=== PATIENT | female | born 1960 | race Caucasian/White ===

== ENCOUNTER 2016-09-12 08:42 | Emergency (ER) | payer SELFPAY ==
[2016-09-12 08:52] VITALS: TEMP 97.9
[2016-09-12] MEDS ORDERED: SODIUM CHLORIDE 0.9% 1,000 ML IV STA (09:26)
[2016-09-12] MEDS ORDERED: HYDROmorphone 1 MG/ML 1 ML SYRINGE IVP STA (09:26)
[2016-09-12] MEDS ORDERED: ONDANSETRON 4 MG/2 ML VIAL IVP STA (09:26)
[2016-09-12 09:51] LABS: Basophils % (A) 0 %; CH 31.9; CHCM 33.5; Eosinophils # (A) 0.1 k/uL (0-0.7); Eosinophils % (A) 1 %; HCT 47.2 % (34.0-46.0); HDW 2.23; HGB 15.6 gm/dL (11.4-16.0); Luc # (Auto) 0.08; Luc % (Auto) 2; Lymphocytes # (A) 1.3 k/uL (1.0-4.8); Lymphocytes % (A) 34 %; MCH 31.6 pg (25.0-35.0); MCHC 33.1 g/dL (31.0-37.0); MCV 95.5 fL (80.0-100.0); Mean Platelet Volume 6.7; Monocytes # (A) 0.1 k/uL (0-1.0); Monocytes % (A) 4 %; Neutrophils # (A) 2.3 k/uL (1.3-7.7); Neutrophils % (A) 59 %; RBC 4.95 m/uL (3.80-5.40); RDW 12.9 % (11.5-15.5); WBC 3.9 k/uL (3.8-10.6); WBC (Perox) 3.76
--- NOTE | 2016-09-12 09:58 | ED ---
Abdominal Pain HPI <StewartZander - Last Filed: 09/12/16 14:50> - General Source: patient, RN notes reviewed Mode of arrival: ambulatory Limitations: no limitations <Becky Hernández - Last Filed: 09/12/16 18:48> - General Chief Complaint: Abdominal Pain Stated Complaint: abd pain Time Seen by Provider: 09/12/16 09:27 - History of Present Illness Initial Comments: Patient is a 55-year-old female presents to the emergency room for evaluation of lower abdominal pain. Patient states she has been having on and off pelvic pain for the past week. Patient states that it did subside. Patient states that this morning on her way to work she began having lower pelvic pain worse in the right lower quadrant. Patient states it was a constant sharp stabbing pain. Patient states the pain is making her nauseous. Patient states she thought she should be evaluated here. Patient denies pain or burning during urination, trouble urinating or blood in urine. Patient does admit to having some yellow vaginal discharge over the past few weeks. Patient denies vaginal bleeding. Patient does state she had a uterine ablation done about 4 years ago and has not had any issues since. Patient denies fevers or chills. Patient states that the pain did subside after taking 400 mg of ibuprofen. Patient denies other histories of abdominal surgeries. Patient states she takes Metoprolol for High Blood Pressure. Patient Denies Any Other Significant past Medical History. Patient Denies Constipation or Diarrhea. Patient Denies Blood in Stools. (Becky Hernández) - Related Data Home Medications Medication Instructions Recorded Confirmed Ascorbic Acid [Vitamin C] 500 mg PO DAILY 09/12/16 09/12/16 Glucosamine/Chondr Cooley A Sod [Osteo 1 tab PO DAILY 09/12/16 09/12/16 Bi-Flex Caplet] Metoprolol Tartrate [Lopressor] 50 mg PO BID 09/12/16 09/12/16 Multivitamins, Thera [Multivitamin 1 tab PO DAILY 09/12/16 09/12/16 (formulary)] [place]-3 Fatty Acids/Fish Oil [Fish 1 cap PO DAILY 09/12/16 09/12/16 Oil 1,000 mg Capsule] Ubidecarenone [Co Q-10] 100 mg PO DAILY 09/12/16 09/12/16 Previous Rx's Medication Instructions Recorded Nitrofurantoin Monohyd/M-Cryst 100 mg PO Q12HR 5 Days 09/12/16 [Macrobid] Allergies Allergy/AdvReac Type Severity Reaction Status Date / Time No Known Allergies Allergy Verified 09/12/16 09:31 Review of Systems ROS Other: All systems not noted in ROS Statement are negative. <Zander William - Last Filed: 09/12/16 14:50> ROS Other: All systems not noted in ROS Statement are negative. <Becky Hernández - Last Filed: 09/12/16 18:48> ROS Statement: Those systems with pertinent positive or pertinent negative responses have been documented in the HPI. Past Medical History Past Medical History: Hypertension History of Any Multi-Drug Resistant Organisms: None Reported Past Surgical History: Uterine Ablation Past Psychological History: No Psychological Hx Reported Smoking Status: Never smoker Past Alcohol Use History: None Reported Past Drug Use History: None Reported <Becky Hernández - Last Filed: 09/12/16 18:48> General Exam <Zander William - Last Filed: 09/12/16 14:50> Limitations: no limitations, language barrier General appearance: in no apparent distress Head exam: Present: atraumatic, normocephalic, normal inspection Eye exam: Present: normal appearance ENT exam: Present: normal exam Neck exam: Present: normal inspection Respiratory exam: Present: normal lung sounds bilaterally. Absent: respiratory distress Cardiovascular Exam: Present: regular rate, normal rhythm, normal heart sounds GI/Abdominal exam: Present: soft, tenderness (mild RLQ and LLQ pain), normal bowel sounds. Absent: distended, guarding, rebound, rigid External exam: Present: normal external exam Speculum exam: Present: normal speculum exam By manual exam: Present: normal by manual exam. Absent: cervical motion tenderness Extremities exam: Present: normal inspection Back exam: Present: normal inspection Neurological exam: Present: alert, oriented X3, CN II-XII intact, normal gait Psychiatric exam: Present: normal affect, normal mood Skin exam: Present: warm, dry, intact, normal color. Absent: rash <Becky Hernández - Last Filed: 09/12/16 18:48> - General Exam Comments Initial Comments: Sitting in exam room, no acute distress. (Becky Hernández) Medical Decision Making - Lab Data Result diagrams: 09/12/16 09:20 09/12/16 09:20 <Zander William - Last Filed: 09/12/16 14:50> - Lab Data Result diagrams: 09/12/16 09:20 09/12/16 09:20 - Radiology Data Radiology results: report reviewed, image reviewed <Becky Hernández - Last Filed: 09/12/16 18:48> - Medical Decision Making Medical decision making. Examine the patient she has mild tenderness more of the suprapubic region. Urinalysis does show evidence of urinary tract infection with 44 whites positive leukocytes. Patient's test was negative. Review of ultrasound and CAT scan suggests possible left ovarian mass. The case was discussed at length with Dr. Finley, the patient's OB/ [employer] [facility] she will follow up in office tomorrow inasmuch as the patient's vital signs are stable now he has minimal discomfort at this time hemoglobin 15 hematocrit of 47 with a white count of 23.9. Patient was told return emergency room if she has any difficulties to be now the time she sees her OB tomorrow. Dr. William (Zander William) - Lab Data Lab Results 09/12/16 09/12/16 09/12/16 Range/Units 09:20 09:20 11:23 WBC 3.9 (3.8-10.6) k/uL RBC 4.95 (3.80-5.40) m/uL Hgb 15.6 (11.4-16.0) gm/dL Hct 47.2 H (34.0-46.0) % MCV 95.5 (80.0-100.0) fL MCH 31.6 (25.0-35.0) pg MCHC 33.1 (31.0-37.0) g/dL RDW 12.9 (11.5-15.5) % Plt Count 171 (150-450) k/uL Neutrophils % 59 % Lymphocytes % 34 % Monocytes % 4 % Eosinophils % 1 % Basophils % 0 % Neutrophils # 2.3 (1.3-7.7) k/uL Lymphocytes # 1.3 (1.0-4.8) k/uL Monocytes # 0.1 (0-1.0) k/uL Eosinophils # 0.1 (0-0.7) k/uL Basophils # 0.0 (0-0.2) k/uL Sodium 145 (137-145) mmol/L Potassium 3.8 (3.5-5.1) mmol/L Chloride 107 (98-107) mmol/L Carbon Dioxide 25 (22-30) mmol/L Anion Gap 13 mmol/L BUN 16 (7-17) mg/dL Creatinine 0.73 (0.52-1.04) mg/dL Est GFR (MDRD) Af Amer >60 (>60 ml/min/1.73 sqM) Est GFR (MDRD) Non-Af >60 (>60 ml/min/1.73 sqM) Glucose 103 H (74-99) mg/dL Calcium 9.1 (8.4-10.2) mg/dL Total Bilirubin 0.8 (0.2-1.3) mg/dL AST 24 (14-36) U/L ALT 21 (9-52) U/L Alkaline Phosphatase 91 (38-126) U/L Total Protein 8.0 (6.3-8.2) g/dL Albumin 4.6 (3.5-5.0) g/dL Amylase 119 H (30-110) U/L Lipase 112 (23-300) U/L Urine Color Yellow Urine Appearance Cloudy H (Clear) Urine pH 5.5 (5.0-8.0) Ur Specific [place] 1.015 (1.001-1.035) Urine Protein Negative (Negative) Urine Glucose (UA) Negative (Negative) Urine Ketones Negative (Negative) Urine Blood Trace H (Negative) Urine Nitrite Negative (Negative) Urine Bilirubin Negative (Negative) Urine Urobilinogen <2.0 (<2.0) mg/dL Ur Leukocyte Esterase Large H (Negative) Urine RBC 2 (0-5) /hpf Urine WBC 44 H (0-5) /hpf Urine WBC Clumps Rare H (None) /hpf Urine Mucus Rare H (None) /hpf Urine HCG, Qual (Not Detectd) Trichomonas Ag (Rapid) (Negative) 09/12/16 09/12/16 Range/Units 11:23 14:21 WBC (3.8-10.6) k/uL RBC (3.80-5.40) m/uL Hgb (11.4-16.0) gm/dL Hct (34.0-46.0) % MCV (80.0-100.0) fL MCH (25.0-35.0) pg MCHC (31.0-37.0) g/dL RDW (11.5-15.5) % Plt Count (150-450) k/uL Neutrophils % % Lymphocytes % % Monocytes % % Eosinophils % % Basophils % % Neutrophils # (1.3-7.7) k/uL Lymphocytes # (1.0-4.8) k/uL Monocytes # (0-1.0) k/uL Eosinophils # (0-0.7) k/uL Basophils # (0-0.2) k/uL Sodium (137-145) mmol/L Potassium (3.5-5.1) mmol/L Chloride (98-107) mmol/L Carbon Dioxide (22-30) mmol/L Anion Gap mmol/L BUN (7-17) mg/dL Creatinine (0.52-1.04) mg/dL Est GFR (MDRD) Af Amer (>60 ml/min/1.73 sqM) Est GFR (MDRD) Non-Af (>60 ml/min/1.73 sqM) Glucose (74-99) mg/dL Calcium (8.4-10.2) mg/dL Total Bilirubin (0.2-1.3) mg/dL AST (14-36) U/L ALT (9-52) U/L Alkaline Phosphatase (38-126) U/L Total Protein (6.3-8.2) g/dL Albumin (3.5-5.0) g/dL Amylase (30-110) U/L Lipase (23-300) U/L Urine Color Urine Appearance (Clear) Urine pH (5.0-8.0) Ur Specific [place] (1.001-1.035) Urine Protein (Negative) Urine Glucose (UA) (Negative) Urine Ketones (Negative) Urine Blood (Negative) Urine Nitrite (Negative) Urine Bilirubin (Negative) Urine Urobilinogen (<2.0) mg/dL Ur Leukocyte Esterase (Negative) Urine RBC (0-5) /hpf Urine WBC (0-5) /hpf Urine WBC Clumps (None) /hpf Urine Mucus (None) /hpf Urine HCG, Qual Not Detected (Not Detectd) Trichomonas Ag (Rapid) Negative (Negative) Disposition <Zander William - Last Filed: 09/12/16 14:50> Time of Disposition: 14:54 <Becky Hernández - Last Filed: 09/12/16 18:48> Clinical Impression: Adnexal mass, Urinary tract infection Disposition: HOME SELF-CARE Condition: Good Instructions: Ovarian Cyst (ED), Urinary Tract Infection in Women (ED) Additional Instructions: Take antibiotics as directed. Call Dr. Finley office tomorrow morning to schedule an ultrasound appointment. Continue taking ibuprofen as needed for pain. If any new symptom arises or symptoms worsen, return to ER as soon as possible. Prescriptions: Nitrofurantoin Monohyd/M-Cryst [Macrobid] 100 mg PO Q12HR 5 Days Referrals: Zander Bajwa DO [Primary Care Provider] - 1-2 days Maci Finley MD [STAFF PHYSICIAN] - 1-2 days
--- NOTE | 2016-09-12 09:58 | XR ---
EXAMINATION TYPE: XR KUB DATE OF EXAM ORDERED: 09/12/2016 HISTORY: abdominal pain. COMPARISON: None. FINDINGS: The abdominal gas pattern is normal. There is no evidence of obstruction or free air. No u nusual calcifications are seen. IMPRESSION: NORMAL ABDOMEN.
[2016-09-12 10:07] LABS: ALT 21 U/L (9-52); AST 24 U/L (14-36); Alkaline Phosphatase 91 U/L (38-126); Amylase 119 U/L (30-110); Anion Gap 13 mmol/L; Blood Urea Nitrogen 16 mg/dL (7-17); Calcium 9.1 mg/dL (8.4-10.2); Carbon Dioxide 25 mmol/L (22-30); Chloride 107 mmol/L (98-107); Glucose 103 mg/dL (74-99); Non-African American GFR(MDRD) >60 (>60 ml/min/1.73 sqM); Potassium 3.8 mmol/L (3.5-5.1); Sodium 145 mmol/L (137-145); Total Bilirubin 0.8 mg/dL (0.2-1.3)
--- NOTE | 2016-09-12 11:38 | US ---
EXAMINATION TYPE: US abdomen APPY DATE OF EXAM: 09/12/2016 COMPARISON: NONE CLINICAL HISTORY: Pain. APPENDIX AP Diameter (normal < 6mm): 2 mm Measured outer wall to outer wall. Tubular structure seen in right lower quadrant, does appear compressible, not hypervascular. Is an appendicolith present: no Is there inflammatory changes or free fluid present: no There is no definite connection to the cecum. IMPRESSION: The appendix is not seen with certainty.
--- NOTE | 2016-09-12 11:45 | US ---
EXAMINATION TYPE: US transvaginal DATE OF EXAM: 09/12/2016 COMPARISON: NONE CLINICAL HISTORY: Pain. TECHNIQUE: Date of LMP: EXAM MEASUREMENTS: Uterus: 4.7 x 2.4 x 2.7 cm Endometrial Stripe: 0.5 cm Right Ovary: 1.8 x 1.2 x 1.3 cm Left Ovary: see measurements below 1. Uterus: difficult to visualize due to compression of uterus by large amount of blood vs ff in lef t adnexa, scattered echogenic foci in endometrium, heterogenous 2. Endometrium: previous ablation, very difficult to visualize 3. Right Ovary: partially obscured by peristalsing bowel, portions visualized appear wnl 4. Left adnexa. Probable left ovary: enlarged, heterogeneous matted appearance Spectral, color and waveform doppler imaging shows good arterial and venous flow within the ovaries ; there is no evidence for ovarian torsion. 5. Bilateral Adnexa: see above 6. Posterior cul-de-sac: blood vs ff in left adnexa IMPRESSION: Findings may be due to postablation change within the endometrium. There is fluid within the pelvis which is moderate in amount. Findings may be indicative of a left adnexal mass, normal ova christian echotexture is not seen. Consider contrast-enhanced CT scan for better evaluation.
[2016-09-12] MEDS ORDERED: RX INFO: IV CONTRAST WAS GIVEN 1 EACH MISC MISCELLANE PRN (11:55)
[2016-09-12 11:58] LABS: Appearance,Urine Cloudy (Clear); Bilirubin,Urine Negative (Negative); Glucose,Urine (UA) Negative (Negative); Ketones,Urine Negative (Negative); Leukocyte Esterase,Urine Large (Negative); Mucus,Urine Rare /hpf; Nitrite,Urine Negative (Negative); PH, Urine 5.5 (5.0-8.0); Particle Count 6442; Protein,Urine Negative (Negative); RBC,Urine 2 /hpf (0-5); Specific Gravity,Urine 1.015 (1.001-1.035); UA Billing (MACRO vs. MICRO) MICRO; Urobilinogen,Urine <2.0 mg/dL (<2.0); WBC,Urine 44 /hpf (0-5)
[2016-09-12 13:25] VITALS: BP 159/88; PULSE 83; RESP 18
[2016-09-12] MEDS ORDERED: KETOROLAC 30 MG/ML 1 ML VIAL IVP STA ×2 (13:25→13:48)
--- NOTE | 2016-09-12 13:39 | CT ---
EXAMINATION TYPE: CT abdomen pelvis w con DATE OF EXAM: 09/12/2016 COMPARISON: NONE HISTORY: 55-year-old female with abdominal pain, RLQ TECHNIQUE: Contiguous axial scanning of the abdomen and pelvis following administration of 100 ml Omn ipaque 300 IV contrast. Delayed images through the kidneys and coronal/sagittal reconstructions perf ormed. CT DLP: 445.00 mGycm Automated exposure control for dose reduction was used. FINDINGS: Heart is normal size without pericardial effusion. Some strandy atelectasis at the inferior lingula. No pleural effusion. No focal liver lesion or biliary ductal dilatation. The portal vein appears patent. Gallbladder, adrenal glands, left kidney, spleen, pancreas appear within normal limits. Subcentimeter hypodensity posterior upper pole right kidney too small for accurate CT characterization, likely a c yst. No dilated small bowel or free air. No mesenteric or retroperitoneal lymphadenopathy. A short portion of a normal caliber appendix may be seen, coronal image 29. There is moderate pelvic ascites. A 9 mm irregular area of hypodensity seems to localize to the right fundal uterine cavity, axial image 68 and coronal image 40. There is some surrounding hyperemia and prominent periuterine varices and enlarged left gonadal vein. Possible complex cystic lesion within the left adnexa measuring 4.5 cm. These may represent clustered bowel loops and assessment is difficult as there is no oral contrast. Bones: Mild degenerative changes at the hips. Degenerative disc disease L5-S1. IMPRESSION: 1. MODERATE PELVIC ASCITES. 2. A 4.5 CM AREA OF CLUSTERED BOWEL LOOPS VERSUS COMPLEX CYSTIC LESION WITHIN THE LEFT ADNEXA. IF THI S REPRESENTS A CYSTIC LESION, HYDROSALPINX AND PYOSALPINX SUCH IN THE SETTING OF PID OR A CYSTIC O VARIAN MASS ARE IN THE DIFFERENTIAL. CONSIDER PELVIC ULTRASOUND TO FURTHER EVALUATE. 3. A 9 MM HYPODENSE AREA WITHIN THE RIGHT UTERINE FUNDUS CAN ALSO BE FURTHER ASSESSED WITH PELVIC ULT RASOUND. IF THERE HAS BEEN PRIOR ENDOMETRIAL ABLATION, THIS COULD REPRESENT FOCAL HEMATOMETRA. 4. PROMINENT PARAUTERINE VARICES AND DISTENDED LEFT GONADAL VEIN CAN BE SEEN IN THE SETTING OF PELVIC CONGESTION SYNDROME.
== END 2016-09-12 15:14 | disposition home or self-care (01) ==
LOC: EC 08:42
DX: N39.0 Urinary tract infection, site not specified (principal); N83.8 Other noninflammatory disorders of ovary, fallopian tube and broad ligament; R10.31 Right lower quadrant pain; R10.32 Left lower quadrant pain; R11.0 Nausea; I10 Essential (primary) hypertension; Z23 Encounter for immunization; Z79.899 Other long term (current) drug therapy; Z98.890 Other specified postprocedural states
CPT/HCPCS: 36415; 80053; 87591; 87491; 82150; 83690; 85025; 81001; 81025; 87808; 87070; 87086; 74000; 93975; 76705; 76830; 74177; 99284; 96374; 96361; J1885; Q9967; 87205

== ENCOUNTER → 2016-11-10 | Outpatient (CLI) | payer SELFPAY ==
--- NOTE | 2016-11-11 06:58 | MM ---
Reason for exam: screening (asymptomatic). Last mammogram was performed 2 years ago. History: Patient is postmenopausal and has history of other cancer at age 48. Physical Findings: A clinical breast exam by your physician is recommended on an annual basis and results should be correlated with mammographic findings. MG 3D Screening Mammo W/Cad Bilateral CC and MLO view(s) were taken. Prior study comparison: November 03, 2014, bilateral MG screening mammo w CAD. October 11, 2012, bilateral digital screening mammo w/CAD. The breast tissue is heterogeneously dense. This may lower the sensitivity of mammography. There is no discrete abnormality. No significant changes when compared with prior studies. ASSESSMENT: Negative, BI-RAD 1 RECOMMENDATION: Routine screening mammogram of both breasts in 1 year.
== END | disposition home or self-care (01) ==
LOC: RADMAMWWP 09:44
PROVIDERS: ATTEND Family Medicine
DX: Z12.31 Encounter for screening mammogram for malignant neoplasm of breast (principal)
CPT/HCPCS: 77063; G0202

== ENCOUNTER → 2016-11-17 | Outpatient (CLI) | payer SELFPAY ==
--- NOTE | 2016-11-17 14:30 | XR ---
EXAMINATION TYPE: XR chest 2V DATE OF EXAM: 11/17/2016 HISTORY: Cough R05. REFERENCE: NONE. FINDINGS: The lungs are clear. Pleural space are clear. Heart size is normal. IMPRESSION: NORMAL CHEST
== END ==
LOC: RADXRMAIN 14:09
PROVIDERS: ATTEND Family Medicine
DX: R05 Cough (principal)
CPT/HCPCS: 71020

== ENCOUNTER → 2017-05-01 | Outpatient (CLI) | payer OTHER | END | disposition home or self-care (01) | LOC: LABWHC1 10:57 | PROVIDERS: ATTEND Physician Assistant | DX: C57.02 Malignant neoplasm of left fallopian tube (principal) | CPT/HCPCS: 36415; 86304 ==

== ENCOUNTER → 2017-05-10 | Outpatient (CLI) | payer OTHER ==
--- NOTE | 2017-05-10 14:40 | CT ---
EXAMINATION TYPE: CT ChestAbdPelvis w con DATE OF EXAM: 05/10/2017 COMPARISON: 09/12/2016 HISTORY: 56 year-old female follow-up ovarian cancer TECHNIQUE: Contiguous axial scanning of the chest, abdomen, and pelvis performed with IV Contrast, pa tient injected with 100 ml mL of Omnipaque 300. Delayed images through the kidneys were obtained. Cor onal/sagittal reconstructions performed. CT DLP: 1501 mGycm Automated exposure control for dose reduction was used. FINDINGS: Chest: Heart is normal size without pericardial effusion. Aorta is normal caliber with conventional arch vessel branching anatomy. A couple hypodense nodules w ithin the right lobe of the thyroid gland measuring up to 8 mm. No thoracic lymphadenopathy by CT size criteria. Streaky atelectasis at the inferior lingula. Mild biapical pleural-parenchymal scarring. No consolida tion or pleural effusion. ABDOMEN: Small amount of focal fat along the anterior falciform ligament. Otherwise, no focal liver lesion. No biliary ductal dilatation. Portal venous system is patent. Gallbladder, adrenal glands, left kidney, spleen, and pancreas appear within normal limits. Tiny subc entimeter hypodensity posterior upper pole right kidney too small for accurate CT characterization, l ikely tiny cyst. Scattered prominent but nonenlarged mesenteric lymph nodes are present measuring up to 5 mm. These ar e seen to been present on 09/12/2016 as well. However, there is a new, mildly enlarged left para-aortic lymph node at the level of the aortic bifur cation measuring 1.1 x 0.8 cm which is more suspicious. No dilated small bowel, free fluid, or free air. Pelvis: Bladder is urine distended. Interval hysterectomy and bilateral salpingo-oophorectomy. Tiny pelvic ph leboliths. No abnormal fluid collection in the pelvis or pelvic lymphadenopathy seen. Bones: Degenerative changes L5-S1. No osseous destructive process. IMPRESSION: 1. INTERVAL HYSTERECTOMY AND BILATERAL SALPINGO-OOPHORECTOMY. 2. MILDLY ENLARGED LEFT PARA-AORTIC LYMPH NODE AT THE LEVEL OF THE AORTIC BIFURCATION IS NEW MEASURIN G 1.1 CM. CORRELATE WITH TUMOR MARKERS A METASTATIC LYMPH NODE IS NOT EXCLUDED. 3. NO OTHER FINDINGS OF METASTATIC DISEASE IN THE CHEST, ABDOMEN, OR PELVIS.
== END | disposition home or self-care (01) ==
LOC: RADCTMAIN 12:58
PROVIDERS: ATTEND Obstetrics & Gynecology
DX: R59.0 Localized enlarged lymph nodes (principal); Z85.43 Personal history of malignant neoplasm of ovary; Z90.710 Acquired absence of both cervix and uterus; Z90.722 Acquired absence of ovaries, bilateral
CPT/HCPCS: 71260; 74177; Q9967

== ENCOUNTER → 2017-10-19 | Outpatient (CLI) | payer SELFPAY ==
[2017-10-19 12:54] LABS: Basophils % (A) 0 %; Eosinophils % (A) 0 %; HCT 38.4 % (34.0-46.0); HGB 12.3 gm/dL (11.4-16.0); Lymphocytes # (A) 0.9 k/uL (1.0-4.8); Lymphocytes % (A) 29 %; MCH 31.7 pg (25.0-35.0); MCHC 32.1 g/dL (31.0-37.0); MCV 98.9 fL (80.0-100.0); Mean Platelet Volume 6.9; Monocytes # (A) 0.2 k/uL (0-1.0); Monocytes % (A) 7 %; Neutrophils % (A) 61 %; Platelet Count 115 k/uL (150-450); RBC 3.88 m/uL (3.80-5.40); RDW 14.3 % (11.5-15.5); WBC 3.3 k/uL (3.8-10.6)
[2017-10-19 13:15] LABS: ALT 23 U/L (9-52); AST 38 U/L (14-36); Albumin 4.8 g/dL (3.5-5.0); Alkaline Phosphatase 77 U/L (38-126); Anion Gap 8 mmol/L; Blood Urea Nitrogen 19 mg/dL (7-17); Calcium 9.6 mg/dL (8.4-10.2); Carbon Dioxide 28 mmol/L (22-30); Chloride 106 mmol/L (98-107); Glucose 100 mg/dL (74-99); Potassium 4.3 mmol/L (3.5-5.1); Sodium 142 mmol/L (137-145); Total Bilirubin 0.3 mg/dL (0.2-1.3); Total Protein 7.9 g/dL (6.3-8.2)
--- NOTE | 2017-10-19 16:38 | CT ---
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 Delayed images through the kidneys were obtained. Elkins l/sagittal reconstructions performed. CT DLP: 1029 mGycm Automated exposure control for dose reduction was used. FINDINGS: Chest: Heart normal size without pericardial effusion. Incidental 3 right pulmonary veins. Aorta normal caliber with conventional access of branching anatomy. A couple small hypodense nodules in the right lobe of the thyroid gland measuring up to 7 mm, unchang ed. No thoracic lymphadenopathy by CT size criteria. Strandy atelectasis inferior lingula. Mild biapical pleural-parenchymal scarring. No consolidation or pleural effusion. ABDOMEN: No focal liver lesion or biliary ductal dilatation. Portal venous system is patent. Gallbladder, adrenal glands, left kidney, spleen, and pancreas show no gross abnormal. Subcentimeter hypodensity posterior upper pole right kidney is larger from 05/10/2017 but still likely represents a cyst. This can be reassessed at follow-up. It measures 7 mm seen on axial image 16 of t he delayed kidney images. No dilated small bowel, free fluid, or free air. Previous lower left periaortic lymph node has decreased in size. No mesenteric or retroperitoneal lym phadenopathy. Moderate stool within the right hemicolon without pericolonic inflammatory change. Pelvis: Bladder urine distended. Uterus and ovaries surgically absent. No abnormal fluid collection in the pe lvis or pelvic lymphadenopathy. Bones: Mild degenerative changes at the hips. Degenerative disc disease at L5-S1. No osseous destructive pro cess. IMPRESSION: 1. STATUS POST HYSTERECTOMY AND SALPINGO-OOPHORECTOMY. 2. THE PREVIOUS LOWER LEFT PERIAORTIC LYMPH NODE HAS DECREASED IN SIZE. NO EVIDENCE FOR METASTATIC DI SEASE. 3. A 7 MM HYPODENSE LESION IN THE UPPER POLE RIGHT KIDNEY HAS INCREASED IN SIZE FROM 05/10/2017 BUT IS STILL SUSPECTED TO REPRESENT A BENIGN CYST. ATTENTION ON FOLLOW-UP.
== END | disposition home or self-care (01) ==
LOC: RADCTMAIN 11:54
PROVIDERS: ATTEND Obstetrics & Gynecology
DX: N28.89 Other specified disorders of kidney and ureter (principal); C57.02 Malignant neoplasm of left fallopian tube; Z90.710 Acquired absence of both cervix and uterus; Z90.722 Acquired absence of ovaries, bilateral
CPT/HCPCS: 80053; 85025; 71260; 74177; 36415; Q9967

== ENCOUNTER → 2017-11-30 | Outpatient (CLI) | payer SELFPAY ==
--- NOTE | 2017-11-30 14:55 | MM ---
Reason for exam: screening (asymptomatic). Last mammogram was performed 1 year and 1 month ago. History: Patient is postmenopausal and has history of other cancer at age 48. Physical Findings: A clinical breast exam by your physician is recommended on an annual basis and results should be correlated with mammographic findings. MG 3D Screening Mammo W/Cad Bilateral CC and MLO view(s) were taken. Prior study comparison: November 10, 2016, bilateral MG 3d screening mammo w/cad. November 03, 2014, bilateral MG screening mammo w CAD. The breast tissue is heterogeneously dense. This may lower the sensitivity of mammography. There is no discrete abnormality. ASSESSMENT: Negative, BI-RAD 1 RECOMMENDATION: Routine screening mammogram of both breasts in 1 year.
== END | disposition home or self-care (01) ==
LOC: RADMAMWWP 09:17
PROVIDERS: ATTEND Obstetrics & Gynecology
DX: Z12.31 Encounter for screening mammogram for malignant neoplasm of breast (principal)
CPT/HCPCS: 77063; 77067

== ENCOUNTER → 2019-03-26 | Outpatient (CLI) | payer SELFPAY ==
--- NOTE | 2019-03-28 10:16 | MM ---
Reason for exam: screening (asymptomatic). Last mammogram was performed 1 year and 4 months ago. History: Patient is postmenopausal and has history of other cancer at age 48. Physical Findings: A clinical breast exam by your physician is recommended on an annual basis and results should be correlated with mammographic findings. MG 3D Screening Mammo W/Cad Bilateral CC and MLO view(s) were taken. Prior study comparison: November 30, 2017, bilateral MG 3d screening mammo w/cad. November 10, 2016, bilateral MG 3d screening mammo w/cad. The breast tissue is heterogeneously dense. This may lower the sensitivity of mammography. Far posterior and inferior asymmetric density right MLO view not seen previously. ASSESSMENT: Incomplete: need additional imaging evaluation, BI-RAD 0 RECOMMENDATION: Special view mammogram of the left breast. (3D) If lesion persists on supplemental views, image directed ultrasound is recommended. [facility] will attempt to contact patient to return for supplemental views and ultrasound if indicated.
== END | disposition home or self-care (01) ==
LOC: RADMAMWWP 07:51
PROVIDERS: ATTEND Family Medicine
DX: Z12.31 Encounter for screening mammogram for malignant neoplasm of breast (principal)
CPT/HCPCS: 77063; 77067

== ENCOUNTER → 2019-04-17 | Outpatient (CLI) | payer SELFPAY ==
--- NOTE | 2019-04-17 11:56 | MM ---
Reason for exam: additional evaluation requested from abnormal screening. Last mammogram was performed 1 month ago. History: Patient is postmenopausal and has history of other cancer at age 48. Physical Findings: Nurse did not find any significant physical abnormalities on exam. MG 3D Work Up W/Cad RT CC and MLO view(s) were taken of the right breast. Prior study comparison: March 26, 2019, bilateral MG 3d screening mammo w/cad. November 30, 2017, bilateral MG 3d screening mammo w/cad. The breast tissue is heterogeneously dense. This may lower the sensitivity of mammography. The previously seen abnormality resolves on additional views and appears as fibroglandular tissue compatible with summation right breast. Precautionary ultrasound will be performed of the inferior right breast. These results were verbally communicated with the patient and result sheet given to the patient on 04/17/19. ASSESSMENT: Incomplete: need additional imaging evaluation, BI-RAD 0 RECOMMENDATION: Ultrasound of the right breast.
--- NOTE | 2019-04-17 11:57 | USB ---
Reason for exam: additional evaluation requested from abnormal screening. History: Patient is postmenopausal and has history of other cancer at age 48. US Breast Workup Limited RT Right limited breast ultrasound including focal area of concern, retroareolar and axilla demonstrates no cystic or solid lesion seen. Dense tissue throughout. No suspicious sonographic finding. These results were verbally communicated with the patient and result sheet given to the patient on 04/17/19. ASSESSMENT: Negative, BI-RAD 1 RECOMMENDATION: Return to routine screening mammogram schedule for both breasts.
== END | disposition home or self-care (01) ==
LOC: RADMAMWWP 10:26
PROVIDERS: ATTEND Family Medicine
DX: R92.8 Other abnormal and inconclusive findings on diagnostic imaging of breast (principal)
CPT/HCPCS: 77061; 77065

== ENCOUNTER → 2019-08-19 | Outpatient (CLI) | payer SELFPAY | END | disposition home or self-care (01) | LOC: LABWHC1 12:24 | PROVIDERS: ATTEND Physician Assistant | DX: C57.02 Malignant neoplasm of left fallopian tube (principal) | CPT/HCPCS: 36415; 86304 ==

== ENCOUNTER → 2020-06-15 | Outpatient (CLI) | payer SELFPAY ==
--- NOTE | 2020-06-17 14:06 | MM ---
Reason for exam: screening (asymptomatic). Last mammogram was performed 1 year and 2 months ago. History: Patient is postmenopausal and has history of other cancer at age 48. Physical Findings: A clinical breast exam by your physician is recommended on an annual basis and results should be correlated with mammographic findings. MG 3D Screening Mammo W/Cad Bilateral CC and MLO view(s) were taken. Prior study comparison: April 17, 2019, right breast MG 3d work up w/cad RT. March 26, 2019, bilateral MG 3d screening mammo w/cad. November 30, 2017, bilateral MG 3d screening mammo w/cad. No significant changes when compared with prior studies. ASSESSMENT: Benign, BI-RAD 2 RECOMMENDATION: Routine screening mammogram of both breasts in 1 year.
== END | disposition home or self-care (01) ==
LOC: RADMAMWWP 08:06
PROVIDERS: ATTEND Internal Medicine Geriatric Medicine
DX: Z12.31 Encounter for screening mammogram for malignant neoplasm of breast (principal)
CPT/HCPCS: 77063; 77067

== ENCOUNTER 2020-09-22 11:36 | Emergency (ER) | payer OTHER ==
[2020-09-22 11:47] VITALS: BP 159/86; PULSE 62; RESP 18; TEMP 97.9
--- NOTE | 2020-09-22 12:41 | ED ---
Skin/Abscess/FB HPI - General Chief complaint: Needlestick/Exposure Stated complaint: [facility]-needlestick Time Seen by Provider: 09/22/20 12:06 Source: patient Mode of arrival: ambulatory Limitations: no limitations - History of Present Illness Initial comments: Patient is a 59-year-old female presenting to the emergency department after a needlestick injury at work today. 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 She does not believe she saw any blood but did feel the needle stick itself. She decided to come in to be seen. There is no active bleeding from the site. The patient is not known to have HIV. There are no further complaints. - Related Data Home Medications Medication Instructions Recorded Confirmed Ascorbic Acid [Vitamin C] 500 mg PO DAILY 09/12/16 09/12/16 Glucosamine/Chondr Cooley A Sod [Osteo 1 tab PO DAILY 09/12/16 09/12/16 Bi-Flex Caplet] Metoprolol Tartrate [Lopressor] 50 mg PO BID 09/12/16 09/12/16 Multivitamins, Thera [Multivitamin 1 tab PO DAILY 09/12/16 09/12/16 (formulary)] [place]-3 Fatty Acids/Fish Oil [Fish 1 cap PO DAILY 09/12/16 09/12/16 Oil 1,000 mg Capsule] Ubidecarenone [Co Q-10] 100 mg PO DAILY 09/12/16 09/12/16 Previous Rx's Medication Instructions Recorded Nitrofurantoin Monohyd/M-Cryst 100 mg PO Q12HR 5 Days cap 09/12/16 [Macrobid] Allergies Allergy/AdvReac Type Severity Reaction Status Date / Time No Known Allergies Allergy Verified 09/22/20 11:43 Review of Systems ROS Statement: Those systems with pertinent positive or pertinent negative responses have been documented in the HPI. ROS Other: All systems not noted in ROS Statement are negative. 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 Patient is nontoxic and in no acute distress. HEAD: Atraumatic, normocephalic. EYES: Pupils equal round and reactive to light, extraocular movements intact, sclera anicteric, conjunctiva are normal. Eyelids were unremarkable. NECK: Normal range of motion, supple without lymphadenopathy or JVD. LUNGS: Unlabored respirations. Breath sounds clear to auscultation bilaterally and equal. No wheezes rales or rhonchi. HEART: Regular rate and rhythm without murmurs, rubs or gallops. ABDOMEN: Soft, nontender, normoactive bowel sounds. MUSCULOSKELETAL: Normal extremities with adequate strength and normal range of motion, no pitting or edema. No clubbing or cyanosis. SKIN: Warm, Dry, normal turgor, no rashes or lesions noted. I see no wound on the right elbow. Limitations: no limitations Course Vital Signs 09/22/20 11:44 Temperature 97.9 F Pulse Rate 62 Respiratory 18 Rate Blood Pressure 159/86 O2 Sat by Pulse 100 Oximetry Medical Decision Making - Medical Decision Making Patient is a 59-year-old female here after needle stick injury to the right elbow while at work today. The area has no evidence of a wound or active bleeding. Patient's blood was obtained, she declined rapid HIV testing at this time, declined HIV prophylaxis. Patient will be discharged home. Disposition Clinical Impression: Needle stick injury Disposition: HOME SELF-CARE Condition: Stable Instructions (If sedation given, give patient instructions): Needle Stick Injuries (ED) Additional Instructions: Please return to the Emergency Department if symptoms worsen or any other concerns. Is patient prescribed a controlled substance at d/c from ED?: No Referrals: José Manuel Devine MD [Primary Care Provider] - 1-2 days Time of Disposition: 12:40
[2020-09-22 20:34] LABS: HIV 2 AB Non-Reactive (Non-Reactive); HIV AB P24 Non-Reactive (Non-Reactive); HIV P24 AG Non-Reactive (Non-Reactive)
[2020-09-22 21:06] LABS: Hepatitis B Surface AB- Quant <3.5 mIU/mL; Hepatitis B Surface Antibody Non-Reactive (Non-Reactive); Hepatitis C IgG Antibody Non-Reactive (Non-Reactive)
== END 2020-09-22 12:48 | disposition home or self-care (01) ==
LOC: EC 11:36
DX: S50.901A Unspecified superficial injury of right elbow, initial encounter (principal); W46.0XXA Contact with hypodermic needle, initial encounter; Y99.0 Civilian activity done for income or pay; I10 Essential (primary) hypertension; E11.9 Type 2 diabetes mellitus without complications
CPT/HCPCS: 36415; 86706; 86803; 87390; 99282

== ENCOUNTER 2020-09-25 10:33 | Emergency (ER) | payer OTHER ==
[2020-09-25 10:37] VITALS: BP 165/73; PULSE 60; RESP 18; TEMP 98
[2020-09-25] MEDS ORDERED: HEPATITIS B IMMUNE GLOBULIN 110 UNITS/0.5 ML SYRG IM ONE (10:58)
--- NOTE | 2020-09-25 11:09 | ED ---
Recheck HPI - General Chief Complaint: Recheck/Abnormal Lab/Rx Stated Complaint: [facility] Time Seen by Provider: 09/25/20 10:40 Source: patient Mode of arrival: ambulatory Limitations: no limitations - History of Present Illness Initial Comments: Patient is a 59-year-old female residing to the emergency department requesting a hepatitis B immunoglobulin. Patient states she was here a few days ago after sustaining a needle stick while at work. She states they ran the sources blood and it was positive for hepatitis B so patient is requesting a hepatitis B immunoglobulin. She denies any fevers or chills, nausea or vomiting, no chest pain or shortness of breath, she has no further complaints today. - Related Data Home Medications Medication Instructions Recorded Confirmed Ascorbic Acid [Vitamin C] 500 mg PO DAILY 09/12/16 09/12/16 Glucosamine/Chondr Cooley A Sod [Osteo 1 tab PO DAILY 09/12/16 09/12/16 Bi-Flex Caplet] Metoprolol Tartrate [Lopressor] 50 mg PO BID 09/12/16 09/12/16 Multivitamins, Thera [Multivitamin 1 tab PO DAILY 09/12/16 09/12/16 (formulary)] [place]-3 Fatty Acids/Fish Oil [Fish 1 cap PO DAILY 09/12/16 09/12/16 Oil 1,000 mg Capsule] Ubidecarenone [Co Q-10] 100 mg PO DAILY 09/12/16 09/12/16 Previous Rx's Medication Instructions Recorded Nitrofurantoin Monohyd/M-Cryst 100 mg PO Q12HR 5 Days cap 09/12/16 [Macrobid] Allergies Allergy/AdvReac Type Severity Reaction Status Date / Time No Known Allergies Allergy Verified 09/25/20 10:34 Review of Systems ROS Statement: Those systems with pertinent positive or pertinent negative responses have been documented in the HPI. ROS Other: All systems not noted in ROS Statement are negative. 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 Patient is nontoxic and in no acute distress. HEAD: Atraumatic, normocephalic. EYES: Pupils equal round and reactive to light, extraocular movements intact, sclera anicteric, conjunctiva are normal. Eyelids were unremarkable. LUNGS: Unlabored respirations. Breath sounds clear to auscultation bilaterally and equal. No wheezes rales or rhonchi. HEART: Regular rate and rhythm without murmurs, rubs or gallops. MUSCULOSKELETAL: Normal extremities with adequate strength and normal range of motion, no pitting or edema. No clubbing or cyanosis. NEUROLOGICAL: Patient is alert and oriented x 3. Normal speech, normal gait. PSYCH: Normal mood, normal affect. SKIN: Warm, Dry, normal turgor, no rashes or lesions noted. Limitations: no limitations Course Vital Signs 09/25/20 10:34 Temperature 98.0 F Pulse Rate 60 Respiratory 18 Rate Blood Pressure 165/73 O2 Sat by Pulse 100 Oximetry Medical Decision Making - Medical Decision Making Patient is a 59-year-old female here requesting a hepatitis B immunoglobulin and after she sustained a needlestick injury while at work a few days ago. The sources blood returned positive for hepatitis B. She was given a hepatitis B immunoglobulin here today at the ER and she is stable for discharge. She can follow-up with her PCP. Disposition Clinical Impression: Needle stick injury Disposition: HOME SELF-CARE Condition: Stable Instructions (If sedation given, give patient instructions): Hepatitis B Immune Globulin (By injection) Additional Instructions: Please return to the Emergency Department if symptoms worsen or any other concerns. Hepatitis B immunoglobulin was given today. Follow-up with your primary care as needed. Is patient prescribed a controlled substance at d/c from ED?: No Referrals: José Manuel Devine MD [Primary Care Provider] - 1-2 days Time of Disposition: 11:09
[2020-09-25] MEDS ORDERED: HEPATITIS B IMMUNE GLOBULIN 5 ML VIAL IM ONE (11:30)
== END 2020-09-25 11:39 | disposition home or self-care (01) ==
LOC: EC 10:33
DX: Z77.21 Contact with and (suspected) exposure to potentially hazardous body fluids (principal); Z23 Encounter for immunization
CPT/HCPCS: 90371; 96372; 99282

== ENCOUNTER → 2021-06-21 | Outpatient (CLI) | payer SELFPAY ==
--- NOTE | 2021-06-22 12:04 | MM ---
Reason for exam: screening (asymptomatic). Last mammogram was performed 1 year ago. History: Patient is postmenopausal and has history of other cancer at age 48. Physical Findings: A clinical breast exam by your physician is recommended on an annual basis and results should be correlated with mammographic findings. MG 3D Screening Mammo W/Cad Bilateral CC and MLO view(s) were taken. Prior study comparison: June 15, 2020, bilateral MG 3d screening mammo w/cad. April 17, 2019, right breast MG 3d work up w/cad RT. The breast tissue is heterogeneously dense. This may lower the sensitivity of mammography. Benign appearing calcifications in the right breast. No significant changes when compared with prior studies. ASSESSMENT: Benign, BI-RAD 2 RECOMMENDATION: Routine screening mammogram of both breasts in 1 year.
== END | disposition home or self-care (01) ==
LOC: RADMAMWWP 09:59
PROVIDERS: ATTEND Internal Medicine Geriatric Medicine
DX: Z12.31 Encounter for screening mammogram for malignant neoplasm of breast (principal); Z78.0 Asymptomatic menopausal state
CPT/HCPCS: 77063; 77067

== ENCOUNTER → 2022-06-22 | Outpatient (CLI) | payer SELFPAY ==
--- NOTE | 2022-06-23 18:21 | MM ---
Reason for Exam: Screening (asymptomatic). Last screening mammogram was performed 12 month(s) ago. Patient History: Menarche at age 15. First Full-Term at age 26. Left ovary removed at age 55. Right ovary removed at age 55. Hysterectomy at age 55. Postmenopausal. Patient has history of breast feeding. Other cancer, age 48. Hormonal Contraceptives, from age 18 until age 32. Risk Values: Amanda 5 year model risk: 1.2%. NCI Lifetime model risk: 6.7%. Prior Study Comparison: 04/17/2019 Right Diagnostic Mammogram, [facility]. 06/15/2020 Bilateral Screening Mammogram, [facility]. 06/21/2021 Bilateral Screening Mammogram, [facility]. Tissue Density: The breast tissue is heterogeneously dense. This may lower the sensitivity of mammography. Findings: Analyzed By CAD. There is no suspicious group of microcalcifications or new suspicious mass in either breast. Overall Assessment: Negative, BI-RAD 1 Management: Screening Mammogram of both breasts in 1 year. 1. Patient should continue monthly self breast exams. 2. A clinical breast exam by your physician is recommended on an annual basis. 3. This exam should not preclude additional follow-up of suspicious palpable abnormalities. Electronically signed and approved by: Amari Bae M.D. Radiologist
== END | disposition home or self-care (01) ==
LOC: RADMAMWWP 08:42
PROVIDERS: ATTEND Internal Medicine Geriatric Medicine
DX: Z12.31 Encounter for screening mammogram for malignant neoplasm of breast (principal); Z78.0 Asymptomatic menopausal state
CPT/HCPCS: 77063; 77067

== ENCOUNTER → 2023-09-14 | Outpatient (CLI) | payer SELFPAY ==
--- NOTE | 2023-09-17 17:39 | MM ---
Reason for Exam: Screening (asymptomatic). Last mammogram was performed 1 year(s) and 2 month(s) ago. Patient History: Menarche at age 15. First Full-Term at age 26. Left ovary removed at age 55. Right ovary removed at age 55. Hysterectomy at age 55. Postmenopausal. Patient has history of breast feeding. Other cancer, age 48. Hormonal Contraceptives, from age 18 until age 32. Risk Values: Amanda 5 year model risk: 1.3%. NCI Lifetime model risk: 6.6%. Prior Study Comparison: 06/15/2020 Bilateral Screening Mammogram, [facility]. 06/21/2021 Bilateral Screening Mammogram, [facility]. 06/22/2022 Bilateral MG 3D screening mammo w/cad, [facility]. Tissue Density: The breasts are heterogeneously dense, which may obscure small masses. Findings: Analyzed By CAD. There is no suspicious group of microcalcifications or new suspicious mass in either breast. Overall Assessment: Benign, BI-RAD 2 Management: Screening Mammogram of both breasts in 1 year. . Patient should continue monthly self-breast exams. A clinical breast exam by your physician is recommended on an annual basis. This exam should not preclude additional follow-up of suspicious palpable abnormalities. Note on Amanda scores and lifetime risk: 1. A Amanda score greater than 3% is considered moderate risk. If this is the case, consider specialist referral to assess eligibility for a risk reducing agent. 2. If overall lifetime risk for the development of breast cancer is 20% or higher, the patient may qualify for future screening with alternating mammogram and breast MRI. Electronically signed and approved by: Amari Bae M.D. Radiologist
== END | disposition home or self-care (01) ==
LOC: RADMAMWWP 09:21
PROVIDERS: ATTEND Internal Medicine Geriatric Medicine
DX: Z12.31 Encounter for screening mammogram for malignant neoplasm of breast (principal); Z78.0 Asymptomatic menopausal state
CPT/HCPCS: 77063; 77067